=== PATIENT | male | born 1990 | race African-American/Black ===

== ENCOUNTER 2017-01-12 12:08 | Emergency (ER) | payer MEDICAID ==
[~2017-01-12] VITALS: Ht 170.2 cm; Wt 108.9 kg
[2017-01-12 12:12] VITALS: BP 163/103; PULSE 115; RESP 16; TEMP 98.3; O2SAT 98
--- NOTE | 2017-01-12 12:15 | NUR ---
OFFERED PT AN ICE PACK, PT STATES HE HAS HAD ICE ON IT AND DOES NOT HELP.
--- NOTE | 2017-01-12 12:15 | NUR ---
RECEIVED PT IN ROOM #3, PT STATES SEVERE PAIN TO LEFT GREAT TOE JOINT RADIATING UP INTO THE ARCH OF HIS FOOT. STATES HE HAS BEEN DX WITH GOUT PRIOR. +SWELLING, +PAIN
--- NOTE | 2017-01-12 12:27 | NUR ---
DR BADILLO AT BEDSIDE FOR EVALUATION
[2017-01-12 12:44] LABS: BASOPHILS # (AUTO) 0.1 K/uL (0.0-0.2); BASOPHILS % (AUTO) 1.4 % (0.0-2.0); EOSINOPHILS # (AUTO) 0.1 K/uL (0.0-0.4); EOSINOPHILS % (AUTO) 0.6 % (0.0-4.0); HEMATOCRIT 42.9 % (36-54); HEMOGLOBIN 14.2 g/dL (14.0-18.0); LYMPHOCYTES % (AUTO) 19.4 % (20.5-51.5); MEAN CORPUSCULAR HEMOGLOBIN 27 pg (27-31); MEAN CORPUSCULAR HGB CONC 33 % (32-36); MEAN CORPUSCULAR VOLUME 81 fL (79.0-98.0); MONOCYTES # (AUTO) 0.6 K/uL (0.0-1.0); NEUTROPHILS # (AUTO) 7.3 K/uL (1.8-7.7); NEUTROPHILS % (AUTO) 72.6 % (40.0-70.0); PLATELET COUNT (AUTO) 190 K/uL (130-430); RED BLOOD CELL COUNT(AUTO) 5.29 MIL/uL (4.2-6.2); RED CELL DISTRIBUTION WIDTH 13.8 % (9.0-15.0); WHITE BLOOD COUNT (AUTO) 10.1 K/uL (4.8-10.8)
[2017-01-12] MEDS ORDERED: KETOROLAC TROMETHAMINE 60 MG/2 ML VIAL IM ONE (12:45)
[2017-01-12 12:52] LABS: CALCIUM 8.9 mg/dL (8.4-11.0); CREATININE 1.35 mg/dL (0.55-1.30)
[2017-01-12 12:54] LABS: URIC ACID 8.4 mg/dL (2.4-7.0)
--- NOTE | 2017-01-12 13:30 | NUR ---
PT. STATES PAIN 04/13 MD NOTIFIED ORDERS RECEIVED
[2017-01-12] MEDS ORDERED: PREDNISONE 20 MG TABLET PO ONE (14:15)
[2017-01-12] MEDS ORDERED: OXYCODONE/ACETAMINOPHEN 5-325 TABLET PO ONE (14:15)
--- NOTE | 2017-01-12 14:29 | NUR ---
Patient given written and verbal discharge instructions and verbalizes understanding. ER MD DR. BADILLO discussed with patient the results and treatment provided. Patient in stable condition. ID arm band removed. Rx of IBUPROFEN PREDNISONE PERCOCET given. Patient educated on pain management and to follow up with PMD. Pain Scale 3/10 Opportunity for questions provided and answered.
[2017-01-12 14:30] VITALS: BP 141/79; PULSE 82; RESP 16; TEMP 98.3; O2SAT 98
== END 2017-01-12 14:30 | disposition home or self-care (01) ==
LOC: SED 12:08
DX: M10.9 Gout, unspecified (principal); I10 Essential (primary) hypertension
CPT/HCPCS: 36415; 80048; 84550; 85025; 96372; 99284; J1885; J7512

== ENCOUNTER 2017-11-08 16:07 | Emergency (ER) | payer MEDICAID ==
[~2017-11-08] VITALS: Ht 170.2 cm; Wt 108.9 kg
[2017-11-08 16:50] VITALS: BP_SYST 155
--- NOTE | 2017-11-08 16:53 | NUR ---
Patient triaged and placed in waiting room. VSS and patient appears in no acute distress at this time. Accompanied by FRIEND, awaiting available bed, and MD notified of need for MSE.
--- NOTE | 2017-11-08 19:25 | NUR ---
PT AMBULATORY TO ER CHAIR 2 FOR EVALUATION
--- NOTE | 2017-11-08 19:30 | NUR ---
Patient arrived to ED a/o x 4 with c/o left foot pain. Patient presents with mild swelling to left foot. Pain 8/10. Hx of gout. CMS present to affected extremity. Patient afebrile. Able to bear partial weight.
--- NOTE | 2017-11-08 19:40 | NUR ---
ED MD Fermin at bedside for medical evaluation.
[2017-11-08] MEDS ORDERED: COLCHICINE 0.6 MG TABLET PO ONE (20:00)
[2017-11-08] MEDS ORDERED: COLCHICINE 0.6 MG TABLET ONE (20:08)
[2017-11-08 20:13] VITALS: BP_SYST 139
--- NOTE | 2017-11-08 20:13 | NUR ---
Patient given written and verbal discharge instructions and verbalizes understanding. ER MD discussed with patient the results and treatment provided. Patient in stable condition. ID arm band removed. Rx of Allopurinol and indomethacin given. Patient educated on pain management and to follow up with PMD. Pain Scale 2/10 tolerable for patient. Opportunity for questions provided and answered.
== END 2017-11-08 20:13 | disposition home or self-care (01) ==
LOC: SED 16:07
DX: M10.9 Gout, unspecified (principal); I10 Essential (primary) hypertension
CPT/HCPCS: 99283